=== PATIENT | female | born 1970 | race Caucasian/White ===

== ENCOUNTER 2023-10-02 19:41 | Inpatient (IN) | payer SELFPAY ==
[2023-10-02] MEDS ORDERED: FAMOTIDINE 20 MG/50 ML IVPB 20 MG/50 ML MG IVPB ONE ×2 (20:10→20:49)
[2023-10-02] MEDS ORDERED: MAG HYDROX/AL HYDROX/SIMETH 30 ML UNIT-DOSE CUP PO ONE (20:10)
[2023-10-02] MEDS ORDERED: ACETAMINOPHEN 1000 MG/100 ML BAG IVPB ONE ×2 (20:10→20:14)
[2023-10-02] MEDS ORDERED: ONDANSETRON 4 MG/2 ML VIAL IVPUSH ONE (20:14)
[2023-10-02] MEDS ORDERED: SODIUM CHLORIDE 0.9% 500 ML INFUS.BAG IV ONE (20:14)
[2023-10-02] MEDS ORDERED: ACETAMINOPHEN INJECTION 100 ML IVPB ONE (20:49)
[2023-10-02] MEDS ORDERED: ONDANSETRON 4 MG/2 ML VIAL ONE (20:49)
[2023-10-02 20:57] LABS: BASO % 0.2 % (0-2.0); HEMATOCRIT 45.3 % (32.4-45.2); HEMOGLOBIN 15.1 GM/dL (10.7-15.3); LYMPH % 12.4 % (8-40); MCH 27.7 pg (25.7-33.7); MCHC 33.4 g/dl (32.0-36.0); MEAN CELL VOLUME 82.9 fl (80-96); MEAN PLT VOLUME 8.6 fl (7.5-11.1); MONO % 1.2 % (3.8-10.2); NEUT % 86.2 % (42.8-82.8); PLATELET COUNT 328 10^3/uL (134-434); RBC 5.46 M/mm3 (3.60-5.2); RDW 12.5 % (11.6-15.6); VENOUS BASE EXCESS 3.5 mmol/L (-2-2); VENOUS O2 SATURATION 20.4 % (70-80); VENOUS PCO2 40.2 mmHg (38-52); VENOUS PH 7.455 (7.310-7.410); WHITE BLOOD COUNT 6.2 K/mm3 (4.0-10.0)
[2023-10-02 21:19] LABS: EPI CELLS >36 /uL (0-25.1); HYALINE CASTS 3 /uL (0-3.1); PH,URINE 6.5 (5.0-8.0); URINE APPEARANCE CLOUDY; URINE BACTERIA 79 /uL (0-1359); URINE BILIRUBIN NEGATIVE (NEGATIVE); URINE COLOR YELLOW; URINE GLUCOSE (UA) TRACE (NEGATIVE); URINE KETONE 2+ (NEGATIVE); URINE LEUK ESTERASE NEGATIVE (NEGATIVE); URINE NITRITE NEGATIVE (NEGATIVE); URINE PROTEIN 1+ (NEGATIVE); URINE RBC 27 /uL (0-23.9)
[2023-10-02 21:33] LABS: POTASSIUM 3.6 mmol/L (3.5-5.1)
[2023-10-02 21:36] LABS: ALBUMIN 4.7 g/dl (3.4-5.0); CALCIUM 10.3 mg/dL (8.5-10.1)
[2023-10-02 21:37] LABS: BLOOD UREA NITROGEN 12.4 mg/dL (7-18)
[2023-10-02] MEDS ORDERED: KETOROLAC TROMETHAMINE 15 MG/ML VIAL IVPUSH ONE (21:37)
[2023-10-02 21:39] LABS: URINE WBC 85.5 /uL (0-25.8)
[2023-10-02 21:41] LABS: BILIRUBIN,TOTAL 1.1 mg/dL (0.2-1); TOT PROT 8.6 g/dl (6.4-8.2)
[2023-10-02] MEDS ORDERED: KETOROLAC TROMETHAMINE 15 MG/ML VIAL ONE (21:48)
[2023-10-02] MEDS ORDERED: morphine CARPU-JECT 4 MG/1 ML DISP.SYRIN IVPUSH ONE (22:53)
[2023-10-02] MEDS ORDERED: morphine SULFATE 4 MG/ML VIAL ONE (22:56)
[2023-10-03] MEDS ORDERED: morphine CARPU-JECT 2 MG/1 ML DISP.SYRIN IVPUSH ONE (00:40)
[2023-10-03] MEDS ORDERED: KETOROLAC TROMETHAMINE 30 MG/1 ML VIAL IVPUSH ONE (02:40)
[2023-10-03] MEDS ORDERED: KETOROLAC TROMETHAMINE 15 MG/ML VIAL ONE (02:43)
[2023-10-03] MEDS ORDERED: ONDANSETRON 4 MG/2 ML VIAL IVPUSH PRN (03:54)
[2023-10-03] MEDS: DEXTROSE 5%-0.45% SALINE 1,000 ML IV SCH (04:06)
[2023-10-03] MEDS: KETOROLAC TROMETHAMINE 30 MG/1 ML VIAL IVPUSH PRN ×3 (04:06→18:34)
[2023-10-03] MEDS ORDERED: PIPERACILLIN/TAZOB 3.375 GM 3.375 GM/50 ML BAG IVPB ONE (05:29)
[2023-10-03] MEDS: PIPERACILLIN/TAZOB 3.375 GM 3.375 GM in DEXTROSE 5%-WATER - 50 ML IVPB SCH ×2 (05:29→10:45)
[2023-10-03 07:43] LABS: BASO % 0.2 % (0-2.0); HEMATOCRIT 43.2 % (32.4-45.2); HEMOGLOBIN 14.2 GM/dL (10.7-15.3); LYMPH % 14.6 % (8-40); MCH 27.9 pg (25.7-33.7); MEAN CELL VOLUME 84.5 fl (80-96); MEAN PLT VOLUME 8.8 fl (7.5-11.1); MONO % 6.5 % (3.8-10.2); NEUT % 78.7 % (42.8-82.8); PLATELET COUNT 310 10^3/uL (134-434); RBC 5.11 M/mm3 (3.60-5.2); RDW 12.5 % (11.6-15.6); WHITE BLOOD COUNT 10.5 K/mm3 (4.0-10.0)
[2023-10-03] MEDS ORDERED: KETOROLAC TROMETHAMINE 30 MG/1 ML VIAL ONE (08:26)
[2023-10-03 08:40] LABS: CHLORIDE 100 mmol/L (98-107); POTASSIUM 3.7 mmol/L (3.5-5.1); SODIUM 139 mmol/L (136-145)
[2023-10-03 08:42] LABS: CALCIUM 9.6 mg/dL (8.5-10.1)
[2023-10-03 08:43] LABS: ALBUMIN 4.4 g/dl (3.4-5.0); ANION GAP 10 mmol/L (4-13); BLOOD UREA NITROGEN 13.8 mg/dL (7-18); CO2 29 mmol/L (21-32); GLUCOSE,RANDOM 181 mg/dL (74-106)
[2023-10-03 08:46] LABS: CREATININE 1.1 mg/dL (0.55-1.3); SGOT/AST 14 U/L (15-37)
[2023-10-03 08:48] LABS: ALK PHOS 77 U/L (45-117); TOT PROT 7.9 g/dl (6.4-8.2)
[2023-10-03 08:52] LABS: SGPT/ALT 20 U/L (13-61)
[2023-10-03] MEDS: ENOXAPARIN NA (PORCINE) 40 MG/0.4 ML DISP.SYRIN SQ SCH (10:55)
[2023-10-03] MEDS: methaDONE HCL 40 MG DISPERSABLE TABLET PO SCH (12:12)
[2023-10-04] MEDS: KETOROLAC TROMETHAMINE 30 MG/1 ML VIAL IVPUSH PRN ×3 (01:33→20:24)
[2023-10-04] MEDS: MELATONIN 5 MG TABLETS PO PRN ×2 (01:50→23:22)
[2023-10-04] MEDS ORDERED: PIPERACILLIN/TAZOB 3.375 GM 3.375 GM in DEXTROSE 5%-WATER - 50 ML IVPB SCH (02:00)
[2023-10-04 02:21] VITALS: RESP 18
[2023-10-04] MEDS: methaDONE HCL 40 MG DISPERSABLE TABLET PO SCH (07:05)
[2023-10-04] MEDS: DEXTROSE 5%-0.45% SALINE 1,000 ML IV SCH (09:55)
[2023-10-04] MEDS: ENOXAPARIN NA (PORCINE) 40 MG/0.4 ML DISP.SYRIN SQ SCH (09:56)
[2023-10-05] MEDS: KETOROLAC TROMETHAMINE 30 MG/1 ML VIAL IVPUSH PRN (04:14)
[2023-10-05] MEDS: methaDONE HCL 40 MG DISPERSABLE TABLET PO SCH (07:04)
[2023-10-05] MEDS: DEXTROSE 5%-0.45% SALINE 1,000 ML IV SCH (07:56)
[2023-10-05] MEDS: ENOXAPARIN NA (PORCINE) 40 MG/0.4 ML DISP.SYRIN SQ SCH (10:23)
[2023-10-05] MEDS ORDERED: ACETAMINOPHEN 1000 MG/100 ML BAG IVPB PRN (13:56)
[2023-10-05 14:08] VITALS: BMI 24.7
[2023-10-05 14:56] VITALS: BP 116/68; PULSE 66; TEMP 98.2
== END 2023-10-05 17:33 | disposition home or self-care (01) | DRG 249 ==
LOC: JER 19:41 → JERBED 10-03 00:40 → OBSVTOIN 10-03 00:40 → J8W 10-03 09:36
PROVIDERS: ADMIT Internal Medicine; ATTEND Internal Medicine
DX: A05.9 Bacterial foodborne intoxication, unspecified (principal); E11.9 Type 2 diabetes mellitus without complications; J45.909 Unspecified asthma, uncomplicated; K52.9 Noninfective gastroenteritis and colitis, unspecified
CPT/HCPCS: 0241U-QW; 36415; 71045-TC-FY; 74177-TC; 76705-TC; 80053; 81003; 82803; 83690; 84484; 84703; 85025; 86140; 87086; 93005; 93010; 99285-25; Q9967